=== PATIENT | male | born 1945 | race American Indian/Alaskan Native ===

== ENCOUNTER 2022-03-23 14:12 | Outpatient (CLI) | payer MEDICARE, SELFPAY ==
[2022-03-23 20:09] LABS: Alanine Aminotransferase 17 U/L (6-50); Albumin Level 4.2 g/dL (3.5-5.1); Alkaline Phosphatase 80 U/L (38-126); Anion Gap 5 mmol/L (8-16); Aspartate Amino Transferase 27 U/L (17-59); Bilirubin,Total 0.4 mg/dL (0.2-1.3); Blood Urea Nitrogen 14 mg/dL (9-20); Calcium 8.9 mg/dL (8.4-10.2); Carbon Dioxide 32 mmol/L (22-30); Chloride 101 mmol/L (98-107); Cholesterol 230 mg/dL (0-200); Estimated Glomerular Filt Rate > 60; Glucose 90 mg/dL (65-110); HDL Direct 88 mg/dL; Potassium 4.7 mmol/L (3.4-5.0); Sodium 138 mmol/L (137-145); Triglycerides 60 mg/dL (<150)
[2022-03-23 20:15] LABS: Thyroid Stimulating Hormone Reflex 0.028 uIU/mL (0.465-4.68)
[2022-03-23 20:28] LABS: LDL Cholesterol Direct 103 mg/dL
[2022-03-23 21:13] LABS: Free T4 Free Thyroxine Reflex 1.79 ng/dL (0.78-2.19)
[2022-03-23 21:56] LABS: Total Triiodothyronine (T3) 1.08 NG/ML (0.97-1.69)
== END 2022-03-23 14:13 | disposition home or self-care (01) ==
LOC: ANHGOSHLAB 14:14
PROVIDERS: PCP Family Medicine; Visit Provider Family Medicine
DX: E78.5 Hyperlipidemia, unspecified (principal); Z79.899 Other long term (current) drug therapy; E03.9 Hypothyroidism, unspecified; Z85.850 Personal history of malignant neoplasm of thyroid
CPT/HCPCS: 36415; 80053; 80061; 84439; 84443; 84480

== ENCOUNTER 2022-10-03 16:51 | Outpatient (CLI) | payer MEDICARE, SELFPAY ==
[2022-10-03 17:50] LABS: Basophils Absolute Auto 0.1 K/mm3 (0.0-0.1); Basophils Percent Auto 1.1 % (0.2-1.2); Eosinophils Absolute Auto 0.2 K/mm3 (0-0.3); Eosinophils Percent Auto 3.2 % (0-4.4); Hematocrit 45.2 % (42.0-52.0); Hemoglobin 15.1 g/dL (14.0-18.0); Lymphocytes Absolute Auto 1.37 K/mm3 (0.9-3.2); Lymphocytes Percent Auto 28.9 % (18.3-44.2); Mean Corpuscular HGB Conc 33.4 g/dl (32-36); Mean Corpuscular Hemoglobin 30.1 pg (26-34); Mean Corpuscular Volume 90.2 fl (80-100); Mean Platelet Volume 10.3 fl (7.4-10.4); Monocytes Absolute Auto 0.4 K/mm3 (0.1-0.6); Monocytes Percent Auto 7.8 % (2.6-8.5); Neutrophils Absolute Auto 2.8 K/mm3 (1.3-6.7); Platelet Count Result 220 k/mm3 (150-375); Red Blood Count 5.01 M/mm3 (4.6-6.20); Red Cell Distribution Width 12.7 % (11.5-14.5); White Blood Count 4.7 K/mm3 (4.5-10.0)
[2022-10-03 18:10] LABS: Alanine Aminotransferase 21 U/L (6-50); Albumin Level 4.1 g/dL (3.5-5.1); Alkaline Phosphatase 71 U/L (38-126); Anion Gap 5 mmol/L (8-16); Aspartate Amino Transferase 29 U/L (17-59); Bilirubin,Total 0.6 mg/dL (0.2-1.3); Blood Urea Nitrogen 12 mg/dL (9-20); Calcium 8.5 mg/dL (8.4-10.2); Carbon Dioxide 32 mmol/L (22-30); Chloride 103 mmol/L (98-107); Cholesterol 221 mg/dL (0-200); Estimated Glomerular Filt Rate > 60; Glucose 87 mg/dL (65-110); HDL Direct 82 mg/dL; Potassium 4.1 mmol/L (3.4-5.0); Sodium 140 mmol/L (137-145); Triglycerides 48 mg/dL (<150)
[2022-10-03 18:21] LABS: LDL Cholesterol Direct 98 mg/dL
[2022-10-03 18:40] LABS: Prostate Specific Antigen 1.8 ng/mL (< OR = 4.0)
[2022-10-03 19:59] LABS: Vitamin D 25 Hydroxy 62.7 ng/mL
== END 2022-10-03 16:52 | disposition home or self-care (01) ==
PROVIDERS: PCP Family Medicine; Visit Provider Family Medicine
DX: Z00.00 Encounter for general adult medical examination without abnormal findings (principal); E78.5 Hyperlipidemia, unspecified; E03.9 Hypothyroidism, unspecified; Z79.899 Other long term (current) drug therapy; Z85.850 Personal history of malignant neoplasm of thyroid; E55.9 Vitamin D deficiency, unspecified; E53.8 Deficiency of other specified B group vitamins; Z12.5 Encounter for screening for malignant neoplasm of prostate
CPT/HCPCS: 36415; 80053; 80061; 82306; 82607; 84153; 85025; G0103

== ENCOUNTER → 2022-12-15 13:57 | Outpatient (CLI) | payer MEDICARE, SELFPAY ==
--- NOTE | ~2022-12-15 | XR_ITS ---
EXAMINATION: XR ribs RT 2V w CXR 2V DATE: 12/15/2022 14:22 INDICATION: Right posterior rib pain TECHNIQUE: PA and lateral views of the chest and 3 views of the right ribs were obtained. COMPARISON: None FINDINGS: No rib fractures identified. 1.5 cm nodular opacity seen on a few of the images at the right costophr enic angle. Remainder of the lungs are clear. No pulmonary edema, pleural effusion or pneumothorax. H eart size is normal. Moderate thoracic spondylosis. Surgical clips at the left and right sides of the base of the neck suggesting prior thyroidectomy. IMPRESSION: 1. No rib fracture. 2. 1.5 cm nodular opacity right costophrenic angle seen only on the fused images which suggests this could represent discoid atelectasis but would recommend further evaluation with low-dose noncontrast chest CT to exclude neoplasm. Reviewed, dictated and finalized at location A. IMPRESSION: 1. No rib fracture. 2. 1.5 cm nodular opacity right costophrenic angle seen only on the fused image s which suggests this could represent discoid atelectasis but would recommend f urther evaluation with low-dose noncontrast chest CT to exclude neoplasm.
== END ==
PROVIDERS: PCP Family Medicine; Visit Provider Family Medicine
DX: R07.81 Pleurodynia (principal); R91.8 Other nonspecific abnormal finding of lung field
CPT/HCPCS: 71046; 71100

== ENCOUNTER 2022-12-23 13:26 | Outpatient (CLI) | payer MEDICARE, SELFPAY ==
--- NOTE | ~2022-12-23 | CT_ITS ---
EXAMINATION:CT diagnostic chest w con DATE: 12/23/2022 13:59 INDICATION: Solitary pulmonary nodule. TECHNIQUE: Computed tomography (CT) of the chest was performed with 75 mL Omnipaque 350 intravenous c ontrast. Automated exposure control and iterative reconstruction technique were employed. The dose-le ngth product (DLP) was 169.11 mGy-cm. COMPARISON: Chest 2 views 12/15/2022 FINDINGS: There is mild scarring at the lung apices. There is mild atelectasis bilaterally. There is peripheral scarring in anterobasal segment right lower lobe. There is mild scarring in paraspinal rig ht lower lobe. No pleural effusion. The heart size is normal. No pericardial effusion. There are brid ging endplate osteophytes at multiple levels in the spine, consistent with diffuse idiopathic skeleta l hyperostosis (DISH). There is mild thoracic spondylosis. IMPRESSION: 1. Mild scarring in right lung lower lobe correlating with the chest radiograph abnormality. Reviewed, dictated and finalized at location E.
[2022-12-23 13:56] LABS: Estimated Glomerular Filt Rate > 60
== END 2022-12-23 13:27 | disposition home or self-care (01) ==
PROVIDERS: PCP Family Medicine; Visit Provider Family Medicine
DX: R91.8 Other nonspecific abnormal finding of lung field (principal)
CPT/HCPCS: 71260; Q9967

== ENCOUNTER 2023-10-06 10:35 | Outpatient (CLI) | payer MEDICARE, SELFPAY ==
[2023-10-06 11:14] LABS: Basophils Absolute Auto 0.1 K/mm3 (0.0-0.1); Basophils Percent Auto 1.4 % (0.2-1.2); Eosinophils Absolute Auto 0.2 K/mm3 (0-0.3); Eosinophils Percent Auto 3.2 % (0-4.4); Hemoglobin 16.2 g/dL (14.0-18.0); Immature Granulocyte Absolute 0.02 K/mm3 (0.00-0.031); Immature Granulocyte Percent A 0.4 % (0-0.5); Lymphocytes Absolute Auto 1.97 K/mm3 (0.9-3.2); Lymphocytes Percent Auto 39.2 % (18.3-44.2); Mean Corpuscular HGB Conc 33.1 g/dl (32-36); Mean Corpuscular Hemoglobin 30.6 pg (26-34); Mean Corpuscular Volume 92.5 fl (80-100); Mean Platelet Volume 10.5 fl (7.4-10.4); Monocytes Absolute Auto 0.5 K/mm3 (0.1-0.6); Monocytes Percent Auto 10.3 % (2.6-8.5); Neutrophils Absolute Auto 2.3 K/mm3 (1.3-6.7); Neutrophils Percent Auto 45.5 % (45.5-73.1); Platelet Count Result 221 k/mm3 (150-375); Red Cell Distribution Width 12.8 % (11.5-14.5)
[2023-10-06 11:28] LABS: Alanine Aminotransferase 23 U/L (6-50); Albumin Level 4.3 g/dL (3.5-5.1); Alkaline Phosphatase 81 U/L (38-126); Anion Gap 3 mmol/L (8-16); Aspartate Amino Transferase 28 U/L (17-59); Bilirubin,Total 0.6 mg/dL (0.2-1.3); Blood Urea Nitrogen 15 mg/dL (9-20); Calcium 9.1 mg/dL (8.4-10.2); Carbon Dioxide 31 mmol/L (22-30); Chloride 105 mmol/L (98-107); Cholesterol 245 mg/dL (0-200); Estimated Glomerular Filt Rate > 60; Glucose 92 mg/dL (65-110); HDL Direct 97 mg/dL; Potassium 4.3 mmol/L (3.4-5.0); Sodium 139 mmol/L (137-145); Triglycerides 72 mg/dL (<150)
[2023-10-06 11:39] LABS: LDL Cholesterol Direct 118 mg/dL
[2023-10-06 11:44] LABS: Vitamin D 25 Hydroxy 48.6 ng/mL
[2023-10-06 11:58] LABS: Prostate Specific Antigen 2.2 ng/mL (< OR = 4.0)
[2023-10-06 11:58] LABS: Thyroid Stimulating Hormone Reflex 0.613 uIU/mL (0.465-4.68)
[2023-10-09 04:31] LABS: Thyroid Peroxidase Antibodies <1 IU/mL (<9)
[2023-10-09 20:45] LABS: Thyrotropin Receptor Antibody <1.00 IU/L (<=2.00)
== END 2023-10-06 10:36 | disposition home or self-care (01) ==
LOC: ANHLAB 10:42
PROVIDERS: PCP Family Medicine; Visit Provider Family Medicine
DX: Z12.5 Encounter for screening for malignant neoplasm of prostate (principal); I10 Essential (primary) hypertension; E78.5 Hyperlipidemia, unspecified; E03.9 Hypothyroidism, unspecified; E55.9 Vitamin D deficiency, unspecified; E53.8 Deficiency of other specified B group vitamins; E07.9 Disorder of thyroid, unspecified; Z85.850 Personal history of malignant neoplasm of thyroid
CPT/HCPCS: 36415; 80053; 80061; 82306; 82607; 83519; 84153; 84443; 85025; 86376; 86800; G0103

== ENCOUNTER 2024-10-04 15:24 | Outpatient (CLI) | payer MEDICARE, SELFPAY ==
--- OUTSIDE RECORDS SUMMARY | 2024-10-04 15:26 | XMS_ITS | Referral Summary ---
Author Organization [facility] Address [address] [place] [address] Care Team Providers Care Enhanced Environmental Operator Name Role Phone Unavailable Primary Care Provider Unavailabl e Source Comments [facility],non-owned Affiliates and Associated Physician Practices is amultiple site organization consisting of ambulatory clinics and hospital sitesin [place], [place], [place] and [place]. This disclosure is being madepursuant to the Care Everywhere program and may not contain all information available regarding this patient. Last updated 18.[facility] Social History Tobacco Use Types Packs/Day Years Used Date Smoking Tobacco: Never Assessed Sex and Gender Information Value Date Recorded Sex Assigned at Not on file Gender Identity Not on file Sexual Orientation Not on file Plan of Treatment Not on file
--- OUTSIDE RECORDS SUMMARY | 2024-10-04 15:26 | XMS_ITS | Continuity of Care Document ---
Author Organization [facility] Address [id number] [place] [address] [place] [address] Phone Care Team Providers Care Car Body Designer Name Role Phone Kevin Dailey Unavailable Unavailable Procedures Procedure Date Office/outpatient Visit, Est Office/outpatient Visit, Est Eye Exam Established Pt Advance Directives Directive Yes / No Effective Date File Name No Information Encounters Encounter Description Practice Location Reason(s) For Visit Diagnoses Date Provider Providers Copied on Encounter Office/outpat ient Visit, Est [facility], [address] [place] [address] [address], [place], [place], [id number], [place] tel:[phone] [facility] No Information 9 Ashlie Kevin. [address] [address], [place], [address], [place]. tel:[phone] Office/outpat ient Visit, [facility], [address] [place] [address] [address], [place], [place], [id number], [place] tel:[phone] SEC [facility] No Information 9 Krishnasamy Kevin. [address] [facility] [address], [place], [address], [place]. tel:[phone] [facility], [address] [place] [address] [address], [place], [place], [id number], tel:[phone] [facility] No Information 7 Sofya Beasley. [address] [facility] , [address], [place], [address], [place]. tel:[phone] Family History Family Member Type Diagnosis Age At Onset No Information Payers Payer name Insurance type Covered alliance party ID Authoriza mckenna(s) Loli Commercial CI [id number] Social History Type Description Quantity Date Captured [...]
--- OUTSIDE RECORDS SUMMARY | 2024-10-04 15:26 | XMS_ITS | Patient Health Summary ---
Author Organization [facility] Address [address] [facility] [place] [address] Care Team Providers Care Faculty I On Call Medical Assistant Name Role Phone Unavailable Primary Care Provider Unavailabl e Note from [facility],non-owned Affiliates and Associated Physician Practices is amultiple site organization consisting of ambulatory clinics and hospital sitesin [place], [place], [place] and [place]. This disclosure is being madepursuant to the Care Everywhere program and may not contain all information available regarding this patient. Last updated 18.[facility] Social History Tobacco Use Types Packs/Day Years Used Date Smoking Tobacco: Never Assessed Sex and Gender Information Value Date Recorded Sex Assigned at Not on file Gender Identity Not on file Sexual Orientation Not on file Procedures * DERMATOPATHOLOGY(Performed 02/04/2020) Results * DERMATOPATHOLOGY (02/04/2020 12:00 AM CDT) Case Report Dermatopathology Report Case: [id number] Authorizing Provider: Boston Mejias MD Collected: 02/04/2020 12:00 AM Ordering Location: [facility] DermPath Lab Received: 02/05/2020 10:47 AM Pathologist: Rena Perez MD Specimen: Skin, left lower lid 0 1:31 PM CDT DERMATOPATHOLOGY LABORATORY Final Diagnosis Specimen A. SKIN, left lower lid: COMPOUND MELANOCYTIC NEVUS, IRRITATED (D22.122) PRESENT AT MARGIN 0 1:31 PM CDT DERMATOPATHOLOGY LABORATORY Clinical History Prob nevus R/O other. 0 1:31 PM CDT DERMATOPATHOLOGY LABORATORY Gross Description Specimen A: Received is one formalin filled container labeled with the patient's name and designated left lower lid. The specimen consists of a non-oriented ellipse of skin measuring [id number]. The epidermal surface is unremarkable. The margin is inked green. Jar 0. 0 1:31 PM CDT DERMATOPATHOLOGY LABORATORY Microscopic Description Specimen A. SKIN, left lower lid: There is melanin pigment in the stratum corneum. There are nests of melanocytes at the dermal-epidermal junction and within the dermis. This lesion is present at the margin of the specimen. 0 1:31 PM CDT DERMATOPATHOLOGY LABORATORY Disclaimer An external and internal positive and negative controls are appropriate for the histochemical, immunohistochemical and immunofluorescence stain(s) in this case (if any), except where stated explicitly. The performance characteristics of the stain(s) cited in this report were developed and its performance characteristic determined by the Dermatopathology Laboratory at [facility], directed by Dr. Lexi Perez. These tests need not be, and therefore are not, approved by the [place] Food and Drug Administration. The tests are used for clinical purposes. Billing Codes Specimen Charges Stain Charges 53799 1 0 1:31 PM CDT DERMATOPATHOLOGY LABORATORY Embedded Images 0 1:31 PM CDT DERMATOPATHOLOGY LABORATORY Pathology/Cytolog y TISSUE SPECIMEN FROM SKIN / Unknown 02/04/2020 02/05/2020 10:47 AM CDT Boston Mejias MD LAB - PATHOLOGY/CYTO LOGY ORDERABLES DERMATOPATHOLOGY LABORATORY [facility] - Department of Dermatology Plate Maker Zinc [place]/[address] [phone]
--- OUTSIDE RECORDS SUMMARY | 2024-10-04 15:26 | XMS_ITS | Encounter Summary ---
Author Organization [facility] Address [address] [facility] [place] [address] Care Team Providers Care Mobile Heavy Equipment Mechanic Name Role Phone Unavailable Primary Care Provider Unavailabl e Encounter Details Date Type Department Care Team (Late st Contact Info) Description 02/05/2020 Lab Requisition [facility] DermPath Lab [address] [facility] [place] [id number] [place] [address] [facility] [address] [place] [address] Social History Tobacco Use Types Packs/Day Years Used Date Smoking Tobacco: Never Assessed Sex and Gender Information Value Date Recorded Sex Assigned at Not on file Gender Identity Not on file Sexual Orientation Not on file documented as of this encounter Plan of Treatment Not on file documented as of this encounter Procedures Procedure Name Priority Date/Time Associated Diagnosis Comments DERMATOPATHOLOGY Routine 02/04/2020 12:0 0 AM CDT documented in this encounter Results * DERMATOPATHOLOGY (02/04/2020 12:00 AM CDT) Case Report Dermatopathology Report Case: [id number] Authorizing Provider: Boston Mejias MD Collected: 02/04/2020 12:00 AM Ordering Location: [facility] DermPath Lab Received: 02/05/2020 10:47 AM Pathologist: [...] of a non-oriented ellipse of skin measuring [id number]. The epidermal surface is unremarkable. The margin [...] characteristic determined by the Dermatopathology Laboratory at [facility], directed by Dr. Lexi Perez. These tests need not be, and therefore are not, approved by the [place] Food and Drug Administration. The tests are used for clinical purposes. Billing Codes Specimen Charges Stain Charges 22841 1 0 1:31 PM CDT DERMATOPATHOLOGY LABORATORY Embedded Images 0 1:31 PM CDT DERMATOPATHOLOGY LABORATORY Pathology/Cytolog y TISSUE SPECIMEN FROM SKIN / Unknown 02/04/2020 02/05/2020 10:47 AM CDT Boston Mejias MD LAB - PATHOLOGY/CYTO LOGY ORDERABLES DERMATOPATHOLOGY LABORATORY [facility] - Department of Dermatology Assistant Guest Services Manager [place] [address], [facility] [phone] documented in this encounter Visit Diagnoses Not on filedocumented in this encounter
--- OUTSIDE RECORDS SUMMARY | 2024-10-04 15:26 | XMS_ITS | Clinical Summary ---
Author Organization [facility] Address [address] [facility] [place] [address] Care Team Providers Care Extrusion Press Adjuster Name Role Phone Unavailable Primary Care Provider Unavailabl e Source Comments [facility] [employer],non-owned Affiliates and Associated Physician Practices is amultiple site organization consisting of ambulatory clinics and hospital sitesin [place], [place], [place] and [place]. This disclosure is being madepursuant to the Care Everywhere program and may not contain all information available regarding this patient. Last updated 18.[facility] [employer] Social History Tobacco Use Types Packs/Day Years Used Date Smoking Tobacco: Never Assessed Sex and Gender Information Value Date Recorded Sex Assigned at Not on file Gender Identity Not on file Sexual Orientation Not on file Plan of Treatment Health Maintenance Due Date Last Done Comments DTAP/TDAP/TD VACCINES (1 - Tdap) 1963 PNEUMOCOCCAL VACCINE 50+ (1 of 1 - PCV) 1994 ZOSTER VACCINE (1 of 2) 1994 Respiratory Syncytial Virus (RSV) Vaccine Pt: or over 60 yrs (1 - 1-dose 75+ series) 2019 COVID-19 VACCINE ( - 2023-2 5 season) 2024 INFLUENZA VACCINE (#1) 2024 DEPRESSION SCREENING 07/31/2024 MEDICARE AWV CALENDAR YEAR 2024 HEPATITIS B VACCINE Aged Out No longe r eligible based on patient's age to complete this topic HIB VACCINE Aged Out No longer eligi ble based on patient's age to complete this topic HPV VACCINE Aged Out No longer eligi ble based on patient's age to complete this topic MENINGOCOCCAL (Group B) VACCINE Aged Out No longer eligible based on patient's age to complete this topic MENINGOCOCCAL VACCINE Aged Out No luis angel truman eligible based on patient's age to complete this topic
[2024-10-04 17:41] LABS: Basophils Absolute Auto 0.1 K/mm3 (0.0-0.1); Basophils Percent Auto 0.8 % (0.2-1.2); Eosinophils Absolute Auto 0.1 K/mm3 (0-0.3); Eosinophils Percent Auto 1.7 % (0-4.4); Hematocrit 46.2 % (42.0-52.0); Immature Granulocyte Absolute 0.01 K/mm3 (0.00-0.031); Immature Granulocyte Percent A 0.2 % (0-0.5); Lymphocytes Absolute Auto 1.67 K/mm3 (0.9-3.2); Lymphocytes Percent Auto 27.9 % (18.3-44.2); Mean Corpuscular HGB Conc 34.6 g/dl (32-36); Mean Corpuscular Hemoglobin 31.6 pg (26-34); Mean Corpuscular Volume 91.3 fl (80-100); Mean Platelet Volume 11.1 fl (7.4-10.4); Monocytes Absolute Auto 0.5 K/mm3 (0.1-0.6); Monocytes Percent Auto 8.7 % (2.6-8.5); Neutrophils Absolute Auto 3.6 K/mm3 (1.3-6.7); Neutrophils Percent Auto 60.7 % (45.5-73.1); Platelet Count Result 235 k/mm3 (150-375); Red Blood Count 5.06 M/mm3 (4.6-6.20); Red Cell Distribution Width 12.8 % (11.5-14.5)
[2024-10-04 17:54] LABS: Alanine Aminotransferase 18 U/L (6-50); Albumin Level 4.2 g/dL (3.5-5.1); Alkaline Phosphatase 80 U/L (38-126); Anion Gap 7 mmol/L (4-12); Aspartate Amino Transferase 29 U/L (17-59); Bilirubin,Total 0.5 mg/dL (0.2-1.3); Blood Urea Nitrogen 15 mg/dL (9-20); Calcium 9.1 mg/dL (8.4-10.2); Carbon Dioxide 32 mmol/L (22-30); Chloride 101 mmol/L (98-107); Cholesterol 231 mg/dL (0-200); Estimated Glomerular Filt Rate > 60; Glucose 90 mg/dL (65-110); HDL Direct 90 mg/dL; Potassium 4.4 mmol/L (3.4-5.0); Sodium 140 mmol/L (137-145); Triglycerides 55 mg/dL (<150)
[2024-10-04 18:00] LABS: Hemoglobin A1C 5.2 % (<5.7)
[2024-10-04 18:06] LABS: LDL Cholesterol Direct 108 mg/dL
[2024-10-04 18:11] LABS: Vitamin D 25 Hydroxy 66.7 ng/mL
[2024-10-04 18:25] LABS: Thyroid Stimulating Hormone Reflex 0.828 uIU/mL (0.465-4.68)
== END 2024-10-04 15:25 | disposition home or self-care (01) ==
LOC: ANHGOSHLAB 15:24
PROVIDERS: PCP Family Medicine; Visit Provider Family Medicine
DX: Z12.5 Encounter for screening for malignant neoplasm of prostate (principal); E78.5 Hyperlipidemia, unspecified; E03.9 Hypothyroidism, unspecified; E53.8 Deficiency of other specified B group vitamins; R73.9 Hyperglycemia, unspecified; E55.9 Vitamin D deficiency, unspecified
CPT/HCPCS: 36415; 80053; 80061; 82306; 82607; 83036; 84153; 84443; 85025; G0103

== ENCOUNTER 2025-05-15 13:29 | Outpatient (CLI) | payer MEDICARE, SELFPAY ==
--- OUTSIDE RECORDS SUMMARY | 2008-09-17 10:30 | XMS_ITS | Continuity of Care Document ---
Author Organization [facility] Address [id number] [place] [address] [place] [address] Phone Care Team Providers Care Director Hematology Name Role Phone Kevin Dailey Unavailable Unavailable Procedures Procedure Date Office/outpatient Visit, Est Office/outpatient Visit, Est Eye Exam Established Pt Advance Directives Directive Yes / No Effective Date File Name No Information Encounters Encounter Description Practice Location Reason(s) For Visit Diagnoses Date Provider Providers Copied on Encounter Office/outpat ient Visit, Est [facility], [address] [place] [address] [address], [place], [place], [id number], [place] tel:[phone] SEC [facility] No Information 9 Ashlie Kevin. [address] [address], [place], [address], [place]. tel:[phone] Office/outpat ient Visit, [facility], [address] [place] [address] [address], [place], [place], [id number], [place] tel:[phone] SEC [facility] No Information 9 Krishnasamy Kevin. [address] [facility] [address], [place], [address], [place]. tel:[phone] [facility], [address] [place] [address] [address], [place], [place], [id number], tel:[phone] [facility] No Information 7 Sofya Beasley. [address] [facility] , [address], [place], [address], [place]. tel:[phone] Family History Family Member Type Diagnosis Age At Onset No Information Payers Payer name Insurance type Covered republican ID Authoriza mckenna(s) [employer] CI [id number] Social History Type Description Quantity Date Captured Comments Sex Male Smoking Status No Information Chief Complaint And Reason For Visit No Information Reason For Referral Reason For Referral No Information History Of Present Illness Encounter Date Complaint History Of Prese nt Illness No Information Functional Status Date Functional Assessmen t No Information Instructions Date Instruction Additional Infor mation No Information Assessments Type Assessment Date No Information Patient Care Teams Name Effective Dates (start - stop) Status Members No Information
--- OUTSIDE RECORDS SUMMARY | 2025-05-15 15:23 | XMS_ITS | Clinical Summary ---
Author Organization [facility] Address [address] [place] [address] Care Team Providers Care Head Tennis Coach Name Role Phone Lionel Duarte MD Primary Care Provider Allergies No known active allergies Medications flaxseed oil oil Take 1 tablet/capsule by mouth nightly Active phenazopyridine (PYRIDIUM) 100 mg tablet Take 1 tablet (100 mg total) by mouth 3 (three) times a day as needed for urinary pain (pain with urination) 30 tablet 1 Active Additional Information Patient not taking.Reported on 06/14/2022 Eliquis 2.5 mg tablet TAKE 1 TABLET(2.5 MG) BY MOUTH TWICE DAILY 180 tablet 2 Active baclofen (LIORESAL) 5 mg tablet Take 1 tablet (5 mg total) by mouth as needed 2 Active mupirocin (BACTROBAN) 2 % ointment Apply topically 3 (three) times a day 22 g 4 Active Additional Information Patient not taking.Reported on 02/24/2025 levothyroxine (SYNTHROID) 112 mcg tabletIndicatio ns:Thyroid cancer (HCC) Take 1 tablet (112 mcg total) by mouth daily 90 tablet 3 5 11/26/19 26 Active Active Problems Problem Noted Date Diagnosed Date Fuchs' corneal dystrophy of right eye 06/26/2024 Combined forms of age-related cataract of right eye 06/26/2024 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 HVF full and OCT with large disc so expect CD to be larger. Macula OCT normal thickness so unlikely with GCL loss Do not recommend phaco without cornea eval - might be better with [facility]SEK/phaco Dr. Carrasco next available IOLM Assessment & Plan (03/26/2024 11:11 AM CDT): Enlarge CD thick CCT but OD may be from edema. Do not recommend straight phaco at this time - high risk of corneal decompensation. Will get baseline testing - and if VF full and OCT shows good RNFL, ok to cont without treatment and have cornea eval for phaco. F/U with me HVF/OCT/GCL Nuclear sclerosis of both eyes 03/26/2024 Fuchs' corneal dystrophy of both eyes 03/26/2024 Benign prostatic hyperplasia 04/13/2021 Overview (04/13/2021): Added automatically from request for surgery [id number] History of pulmonary embolism 02/25/2021 Assessment & Plan (02/25/2021 11:49 AM CDT): Remain on Eliquis. Doing well Vitamin D deficiency 02/25/2021 Screening for colon cancer 01/07/2019 Overview (01/07/2019): Added automatically from request for surgery [id number] Follicular carcinoma of thyroid gland 05/30/2017 Cancer Staging:Clinical:Stage Unknown(T1, NX, M0) - Signed by Louise Dee MD on 09/14/2021 Assessment & Plan (02/25/2021 11:49 AM CDT): Check labs at this time. Encounters Date Type Department Care Team Description 03/06/2025 2:10 PM CDT Anesthesia Event [facility] [id number] [place] Erik RIVERKAMALJIT TILLEY OMAYRA [address] Michell Tyson DO Cohen, Albert M., MD 03/06/2025 2:00 PM CDT - 03/06/2025 2:30 PM CDT Surgery [facility] [address] [address] TILLEY, OMAYRA [address] Thang Dela Cruz MD COLONOSCOPY 03/06/2025 12:20 PM CDT - 03/06/2025 3:23 PM CDT Hospital Encounter [facility] [address] O[place] Pack [address] Thang Dela Cruz MD Discharge Disposition: Discharge to home or self care from Last 3 Months Immunizations Immunization Administration Dates Next Due Pneumococcal Conjugate PCV 13 09/27/2018 Pneumococcal Polysaccharide PPV23 04/04/2019 Surgical History Surgery Date Site/Laterality Comments SD THYROIDECTOMY TOTAL/COMPLETE 07/31/2006 - 07/30/2007 Thyroid Surgery Total Thyroidectomy - 07/06- follicular thyroid carcinoma. (Added by SKINNY Conv) HERNIA REPAIR 07/31/2017 - 07/30/2018 LASER OF PROSTATE W/ GREEN LIGHT PVP 07/31/2020 - 07/30/2021 Medical History Medical History Date Comments Personal history of other en docrine, nutritional and metabolic disease History of thyroid d isease - (Added by TW Conv) Personal history of malignant neoplasm History of malignant neoplasm - (Added by TW Conv) Pulmonary embolus (HCC) Thyroid cancer (HCC) 2006 CLAY Cataract Glaucoma Family History Medical History Relation Name Comments Anesthesia problems Neg Hx Social History Tobacco Use Types Packs/Day Years Used Date Smoking Tobacco: Never Smokeless Tobacco: Never Tobacco Cessation:Counseling Given: Not Answered AUDIT-C Answer Date Recorded Q1: How often do you have a drink containing alc ohol? Monthly or less 03/06/2025 Q2: How many drinks containi ng alcohol do you have on a typical day when you are drinking? 1 or 2 03/06/2025 Q3: How often do you have si x or more drinks on one occasion? Never 03/06/2025 Personal Safety Answer Date Recorded Have you ever been in or are you currently in a harmful physical or emotional relationship or is someone making you feel afraid or unsafe? Denies 03/06/2025 Sex and Gender Information Value Date Recorded Sex Assigned at Not on file Legal Sex Male 12:24 PM ACCOUNT COORDINATOR Gender Identity Not on file Sexual Orientation Not on file Obstetrics History Last Filed Vital Signs Vital Sign Reading Time Taken Comments Blood Pressure 144/78 03/06/2025 2:55 PM CDT Pulse 62 03/06/2025 2:55 PM CDT Temperature 36.3 C (97.3 F) 03/06/2025 2:30 PM CDT Respiratory Rate 18 03/06/2025 2:55 PM CDT Oxygen Saturation 96% 03/06/2025 2:55 PM CDT Inhaled Oxygen Concentration - - Weight 61.2 kg (135 lb) 03/06/2025 12:50 PM CDT Height 170.2 cm (5' 7) 03/06/2025 12:50 PM CDT Body Mass Index 21.14 03/06/2025 12:50 PM CDT Plan of Treatment Health Maintenance Due Date Last Done Comments Depression Screening 1945 DTaP/Tdap/Td Vaccine (1 - Tdap) 1955 Hepatitis B Screening 1962 Zoster Vaccine (1 of 2) 1994 Well Visit 65+ 2009 Influenza Vaccine (#1) 2025 05/11/2017 Fall Risk Assessment 03/06/2026 03/06/2025, 09/16/19 22 Pneumococcal vaccine 65+ Completed 019, 09/27/2018, 01/12/2010 Colon Cancer Screening-CT Colonography Discontinued 03/06/2025 Colon Cancer Screening-Colonoscopy Discontinued 2024 Colon Cancer Screening-DNA Stool Discontinued 03/06/20 25 Colon Cancer Screening-FIT Discontinued 03/06/2025 Colon Cancer Screening-FOBT Discontinued 03/06/2025 Colon Cancer Screening-Sigmoidoscopy Discontinued 01/2025 Colorectal Cancer Screening Discontinued Procedures Procedure Name Priority Date/Time Associated Diagnosis Comments COLONOSCOPY 03/06/2025 2:11 PM CDT Screening for colon cancer COLONOSCOPY 03/06/2025 2:01 PM CDT from Last 3 Months Results * Colonoscopy (03/06/2025 2:01 PM CDT) Anatomical Region Laterality Modality Other Narrative Procedure Note Thang Dela Cruz MD - 03/06/2025 2:01 PM CDT ENDOSCOPY LAB Patient Name: Kianna Norman Procedure Date: 03/06/2025 2:01 PM Date of : 1945 Admit Type: Outpatient Age: 79 Gender: Male Attending MD: Balbir Dela Cruz M.D., Room: [facility] 03 Note Status: Finalized Procedure: Colonoscopy Indications: Screening for colorectal malignant neoplasm, Last colonoscopy: 2008 Providers: Balbir Dela Cruz M.D. Referring MD: Lionel Duarte M.D. Medicines: Monitored Anesthesia Care Complications: No immediate complications. Estimated Blood Loss: Estimated blood loss: none. Procedure: Pre-Anesthesia Assessment: - Immediately prior to administration ofmedications, the patient was re-assessed for adequacy to receive sedatives. The benefits, risks and alternatives of theprocedure and sedation were discussed and informed consentwas obtained. All questions were answered. Please referto the signed informed consent document in the medical record. The scope was passed under direct vision.The [id number] was introduced through the anusand advanced to the cecum, identified by appendiceal orifice and ileocecal valve. The colonoscopy was performed without difficulty. The patient tolerated the procedure well. The quality of the bowel preparation was good. The quality of the bowel preparation was evaluated using the BBPS (BostonBowel Preparation Scale) with scores of: Right Colon = 3, Transverse Colon = 3 and Left Colon = 3 (entiremucosa seen well with no residual staining, smallfragments of stool or opaque liquid). The total BBPS score equals 9. Bowel prep was administered using a split dose. Findings: Non-bleeding internal hemorrhoids were found during retroflexion. The hemorrhoids were small. The exam was otherwise without abnormality on direct and retroflexion views. Impression: - Non-bleeding internal hemorrhoids. - The examination was otherwise normal on directand retroflexion views. Recommendation: - Repeat colonoscopy is not recommended for surveillance based on clinical status at thattime. Attending Participation: I personally performed the entire procedure. Electronically signed by Balbir Dela Cruz MD Balbir Dela Cruz M.D. 03/06/2025 2:28:56 PM Number of Addenda: 0 Note Initiated On: 03/06/2025 2:01 PM Thang Darian Dela Cruz MD ENDOSCOPY PROCEDURES Final Result from Last [address] [place] [address] [employer] MEDICARE MEDICARE [facility] Address: [address] [address] [place] [address] [facility] [employer] [facility] ACCESS TNA COVOHIOHEALTHY HMO/POS [facility] [employer]IC[employer] ADVANTAGE [facility]IC[facility] Address: [address] [place] [address] Advance Directives For more information, please contact: [phone] * Full Code (Latest Code Status on File) Date Activated Date Inactivated Comments 03/06/2025 12:38 PM 03/06/2025 7:23 PM Care Teams Head Tennis Coach Relationship Specialty [place] [address] [place] [address] [place] [address] PCP - General Family Practice 05/28/24
--- OUTSIDE RECORDS SUMMARY | 2025-05-15 15:23 | XMS_ITS | Encounter Summary ---
Author Organization [facility] Address [address] [facility] [place] [address] Care Team Providers Care Program Attendant Name Role Phone Unavailable Primary Care Provider Unavailabl e Encounter Details Date Type Department Care Team (Late st Contact Info) Description 02/05/2020 Lab Requisition [facility] Lab [address] [facility] [place] [id number] [place] [address] [facility] [address] [place] [address] Social History Tobacco Use Types Packs/Day Years Used Date Smoking Tobacco: Never Assessed Sex and Gender Information Value Date Recorded Sex Assigned at Not on file Legal Sex Male 9:40 AM CDT Gender Identity Not on file Sexual Orientation Not on file documented as of this encounter Plan of Treatment Not on file documented as of this encounter Procedures Procedure Name Priority Date/Time Associated Diagnosis Comments DERMATOPATHOLOGY Routine 02/04/2020 12:0 0 AM CDT documented in this encounter Results * DERMATOPATHOLOGY (02/04/2020 12:00 AM CDT) Case Report Dermatopathology Report Case: [id number] Authorizing Provider: [place] Mejias MD Collected: 02/04/2020 12:00 AM Ordering Location: [facility] Received: 02/05/2020 10:47 AM Pathologist: Rena Perez MD Specimen: Skin, left lower lid 0 1:31 PM CDT DERMATOPATHOLOGY LABORATORY Final Diagnosis Specimen A. SKIN, left lower lid: COMPOUND MELANOCYTIC NEVUS, IRRITATED (D22.122) PRESENT AT MARGIN 0 1:31 PM CDT DERMATOPATHOLOGY LABORATORY at 1331 CDT Clinical History Prob nevus R/O other. 0 1:31 PM CDT DERMATOPATHOLOGY LABORATORY Gross Description Specimen A: Received is one formalin filled container labeled with the patient's name and designated left lower lid. The specimen consists of a non-oriented ellipse of skin measuring [id number]. The epidermal surface is unremarkable. The margin [...] by the Dermatopathology Laboratory at [facility], directed by Dr. Lexi Perez. These tests need not be, and therefore are not, approved by the [place] Food and Drug Administration. The tests are used for clinical purposes. Billing Codes Specimen Charges Stain Charges 53076 1 0 1:31 PM CDT DERMATOPATHOLOGY LABORATORY Embedded Images 0 1:31 PM CDT DERMATOPATHOLOGY LABORATORY Pathology/Cytolog y TISSUE SPECIMEN FROM SKIN / Unknown 02/04/2020 02/05/2020 10:47 AM CDT Boston Mejias MD LAB - PATHOLOGY/CYTOLOGY MAX ANTOINE Final Result DERMATOPATHOLOGY LABORATORY [facility] - Department of Dermatology Travel [place] [address], [facility] [phone] documented in this encounter Visit Diagnoses Not on filedocumented in this encounter
--- OUTSIDE RECORDS SUMMARY | 2025-05-15 15:23 | XMS_ITS | Encounter Summary ---
Author Organization [facility] Address [address] [place] [address] Care Team Providers Care Mechanist Name Role Phone Jose Daly MD Unavailable [phone] Jay Faustin MD Primary Care Provider [phone] Wes Cedeno MD Primary Care Provider Lionel Duarte MD Primary Care Provider Encounter Details Date Type Department Care Team (Latest Contact Info) Description 12/13/2020 Ophth Exam Ophthalmology Chelsy Rick MD PhD [address] [place] [address] Social History Tobacco Use Types Packs/Day Years Used Date Smoking Tobacco: Never Smokeless Tobacco: Never Sex and Gender Information Value Date Recorded Sex Assigned at Not on file 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 Gender Identity Not on file Sexual Orientation Not on file documented as of this encounter Plan of Treatment Not on file documented as of this encounter Visit Diagnoses Not on filedocumented in this encounter Additional Health Concerns Infection Onset Date Last Indicated Resolved Time COVID: Suspected 05/06/2021 05/06/2021 05/18/2021 6:37 AM CDT documented as of this encounter Eye Exam Visual Acuity (Snellen - Linear) Right eye Left eye Near sc 20/30 PH 20/20-2 20/20-1 Correction: Glasses Tonometry (Tonopen, 5:48 PM) Right eye Left eye Pressure 20 20 Pupils Dark Light Shape React APD Right eye 3 2 Round Brisk None Left eye 3 2 Round Brisk None Visual Fritz Right eye Left eye Full Full Denies any areas that are blacked out, cloudy, marquez, or distorted Extraocular Movement Right eye Left eye Full Full Neuro/Psych Oriented x3: Yes Mood/Affect: Normal Dilation Both eyes: 1% Tropicamide, 2 .5% Phenylephrine @ 5:49 PM Amsler Right eye Left eye wnl wnl, says vertic al lines seem double External Exam Right eye Left eye External Normal Normal Slit Lamp Exam Right eye Left eye Lids/Lashes Normal Normal Conjunctiva/Sclera White and quiet White and ulises et Cornea ?guttata versus endo thelial pigment diffusely ?guttata versus endothelial pigment diffusely Anterior Chamber Deep and quiet Deep and quiet Iris Round and reactive Round and mio ctive Lens 2+ NS, cortical spok ing approaching visual axis 2+ NS, cortical spoking approaching visual axis Vitreous callie neg, santacruz ring present s haffer neg, santacruz ring present Fundus Exam Right eye Left eye Disc Normal crisp margins no pallor or heme Normal crisp margins no pallor or heme C/D Ratio 0.65 0.5 Macula Normal flat attached Normal Vessels Normal c/c Normal Periphery Normal without lesions tears or heme Possible temporal pigmentary changes? Otherwise without lesions, tears or detachments, heme Care Teams Mechanist Relationship Specialty Start Date End Date Jay Faustin MD [address] [address] PCP - General Endocrinology Diabetes & Metabolism 10/12/20 02/22/21 Wes Cedeno MD [address] [address] PCP - General Internal Medicine 02/23/21 05/27/24 Lionel Duarte MD [facility] [address] [place] [address] PCP - General Family Practice 05/28/24 Jose Daly MD [facility] [address] [facility] [address] [place] [address] Radiation Oncologist Radiation Oncology 05/10/18 4 documented as of this encounter
--- OUTSIDE RECORDS SUMMARY | 2025-05-15 15:23 | XMS_ITS | Encounter Summary ---
Author Organization [facility] Address [address] [place] [address] Phone Care Team Providers Care Coating Technician Name Role Phone Juan Fraire MD Primary Care Provider [phone] Unknown, Notinfile Primary Care Provider Unavail able Juan Fraire MD Primary Care Provider [phone] Unknown, Notinfile Primary Care Provider Unavail able Juan Fraire MD Primary Care Provider [phone] Jose Daly MD Unavailable [phone] Jay Faustin MD Primary Care Provider [phone] Wes Cedeno MD Primary Care Provider [phone] Lionel Duarte MD Primary Care Provider Encounter Details Date Type Department Care Team (Latest Contact Info) Description 05/12/2017 Orders Only [facility] CONVERSION Scanning, Provider Social History Tobacco Use Types Packs/Day Years Used Date Smoking Tobacco: Never Assessed Sex and Gender Information Value Date Recorded Sex Assigned at Not on file 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 Gender Identity Not on file Sexual Orientation Not on file documented as of this encounter Plan of Treatment Not on file documented as of this encounter Procedures Procedure Name Priority Date/Time Associated Diagnosis Comments VASCULAR LABORATORY REPORT 05/12/2017 1:43 PM CDT documented in this encounter Results * VASCULAR LABORATORY REPORT (05/12/2017 1:43 PM CDT) Anatomical Region Laterality Modality Ultrasound us Provider Scanning CV VASCULAR PROCEDURES Final R esult documented in this encounter Visit Diagnoses Not on filedocumented in this encounter Additional Health Concerns Infection Onset Date Last Indicated Resolved Time COVID: Suspected 05/06/2021 05/06/2021 05/18/2021 6:37 AM CDT documented as of this encounter Care Teams Coating Technician Relationship Specialty Start Date End Date Juan Fraire MD [address] [address] PCP - General 05/11/17 05/15/17 Unknown, Notinfile PCP - General 05/16/17 05/29/17 Juan Fraire MD [address] [address] PCP - General 05/30/17 05/30/17 Unknown, Notinfile PCP - General 05/31/17 08/24/17 Juan Fraire MD [address] [address] PCP - General 08/25/17 10/11/20 Jay Faustin MD [address] [address] PCP - General Endocrinology Diabetes & Metabolism 10/12/20 02/22/21 Wes Cedeno MD [address] [address] PCP - General Internal Medicine 02/23/21 05/27/24 Lionel Duarte MD [address] [place] [address] [address] PCP - General Family Practice 05/28/24 Jose Daly MD [address] [facility] [address] [place] [address] Radiation Oncologist Radiation Oncology 05/10/1808/01/ 4 documented as of this encounter
--- OUTSIDE RECORDS SUMMARY | 2025-05-15 15:23 | XMS_ITS | Encounter Summary ---
Author Organization [facility] Address [address] [place] [address] Phone Care Team Providers Care Filters Assembler Name Role Phone Unknown, Notinfile Primary Care Provider Unavail able Juan Fraire MD Primary Care Provider [phone] Unknown, Notiile Primary Care Provider Unavail able Juan Fraire MD Primary Care Provider [phone] Jose Daly MD Unavailable [phone] Jay Faustin MD Primary Care Provider [phone] Wes Cedeno MD Primary Care Provider [phone] Lionel Duarte MD Primary Care Provider Encounter Details Date Type Department Care Team (Late st Contact Info) Description 05/17/2017 Orders Only [facility] ProviderKayleen MD [address] [place] [address] Social History Tobacco Use Types Packs/Day Years Used Date Smoking Tobacco: Never Assessed Sex and Gender Information Value Date Recorded Sex Assigned at Not on file 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 us Historical Provider MD MENDEZ XR PROCEDURES Final R esult documented in this encounter Visit Diagnoses Not on filedocumented in this encounter Additional Health Concerns Infection Onset Date Last Indicated Resolved Time COVID: Suspected 05/06/2021 05/06/2021 05/18/2021 6:37 AM CDT documented as of this encounter Care Teams Filters Assembler Relationship Specialty Start Date End Date Unknown, Notinfile PCP - General 05/16/17 05/29/17 Juan Fraire MD [address] [address] PCP - General 05/30/17 05/30/17 Unknown, Notinfile PCP - General 05/31/17 08/24/17 Juan Fraire MD [address] [address] PCP - General 08/25/17 10/11/20 Jay Faustin MD [address] [address] PCP - General Endocrinology Diabetes & Metabolism 10/12/20 02/22/21 Wes Cedeno MD [address] [address] PCP - General Internal Medicine 02/23/21 05/27/24 Lionel Duarte MD [facility] [facility] [address] [place] [address] PCP - General Family Practice 05/28/24 Jose Daly MD [address] [facility] [address] [place] [address] Radiation Oncologist Radiation Oncology 05/10/18 4 documented as of this encounter
--- OUTSIDE RECORDS SUMMARY | 2025-05-15 15:23 | XMS_ITS | Clinical Summary ---
Author Organization [facility] Address [address] [facility] [place] [address] Care Team Providers Care President And Chief Executive Officer Name Role Phone Unavailable Primary Care Provider Unavailabl e Source Comments [facility],non-owned Affiliates and Associated Physician Practices is amultiple site organization consisting of ambulatory clinics and hospital sitesin [place], [place], [place] and [place]. This disclosure is being madepursuant to the Care Everywhere program and may not contain all information available regarding this patient. Last updated 18.[facility] Social History Tobacco Use Types Packs/Day Years [...] yrs (1 - 1-dose 75+ series) 2019 DEPRESSION SCREENING 07/31/2024 COVID-19 VACCINE ( - 2023-2 5 season) 2025 INFLUENZA VACCINE (#1) 2025 HEPATITIS B VACCINE Aged Out No longe r eligible based on patient's age to complete this topic HIB VACCINE Aged Out No longer eligi ble based on patient's age to complete this topic HPV VACCINE Aged Out No longer eligi ble based on patient's age to complete this topic MENINGOCOCCAL (Group B) VACC INE SHARED DECISION-MAKING Aged Out No longer eligibl e based on patient's age to complete this topic MENINGOCOCCAL GROUPS A/C/Y/W VACCINE Aged Out No longer eligible b ased on patient's age to complete this topic Insurance [facility] MEDICARE ADV
[2025-05-15 19:37] LABS: Hematocrit 46.6 % (42.0-52.0); Hemoglobin 15.5 g/dL (14.0-18.0); Immature Granulocyte Percent A 0.4 % (0-0.5); Lymphocytes Absolute Auto 1.19 K/mm3 (0.9-3.2); Mean Corpuscular HGB Conc 33.3 g/dl (32-36); Mean Corpuscular Hemoglobin 30.2 pg (26-34); Mean Corpuscular Volume 90.7 fl (80-100); Nucleated Red Blood Cells Absolute Auto 0.000 K/mm3 (0.0-0.012); Nucleated Red Blood Cells Perc 0.0 % (0.0-0.2); Platelet Count Result 226 k/mm3 (150-375); Red Blood Count 5.14 M/mm3 (4.6-6.20); White Blood Count 5.3 K/mm3 (4.5-10.0)
[2025-05-15 19:56] LABS: Alanine Aminotransferase 18 U/L (6-50); Albumin Level 4.3 g/dL (3.5-5.1); Alkaline Phosphatase 79 U/L (38-126); Anion Gap 7 mmol/L (4-12); Aspartate Amino Transferase 33 U/L (17-59); Bilirubin,Total 0.5 mg/dL (0.2-1.3); Blood Urea Nitrogen 16 mg/dL (9-20); Calcium 8.8 mg/dL (8.4-10.2); Carbon Dioxide 28 mmol/L (22-30); Chloride 101 mmol/L (98-107); Estimated Glomerular Filt Rate > 60; Glucose 90 mg/dL (65-110); Potassium 4.6 mmol/L (3.4-5.0); Sodium 136 mmol/L (137-145); Total Protein 7.3 g/dL (6.3-8.2)
[2025-05-15 20:51] LABS: Thyroid Stimulating Hormone Reflex 1.070 uIU/mL (0.465-4.68)
== END 2025-05-15 13:30 | disposition home or self-care (01) ==
LOC: ANHGOSHLAB 13:29
PROVIDERS: PCP Family Medicine; Visit Provider Family Medicine
DX: E03.9 Hypothyroidism, unspecified (principal); R53.83 Other fatigue
CPT/HCPCS: 36415; 80053; 84443; 85025